=== PATIENT | female | born 1990 | race Asian ===

== ENCOUNTER 2019-07-02 15:33 | Inpatient (IN) ==
[2019-07-02 16:16] LABS: Basophils # (auto) 0.01 K/uL (0-0.2); Basophils % (auto) 0.2 %; Eosinophils # (auto) 0.04 K/uL (0-0.5); Eosinophils % (auto) 0.7 %; Hemoglobin 13.5 g/dL (12.0-16.0); Immature Granulocytes # (auto) 0.01 K/uL (0.00-0.02); Immature Granulocytes % (auto) 0.2 %; Lymphocytes # (auto) 1.73 K/uL (1.2-3.4); Mean Corpuscular Hemoglobin 31.5 pg (25-34); Mean Corpuscular Hgb Conc 33.8 g/dL (32-36); Mean Corpuscular Volume 93.5 fL (80-100); Mean Platelet Volume 9.1 fL (7.4-10.4); Monocytes # (auto) 0.38 K/uL (0.11-0.59); Monocytes % (auto) 6.4 %; Neutrophils # (auto) 3.79 K/uL (1.4-6.5); Neutrophils % (auto) 63.5 %; Platelet Count 257 K/uL (130-400); RDW Coefficient of Variation 13.3 % (11.5-14.5); RDW Standard Deviation 45.3 fL (36.4-46.3); Red Blood Count 4.28 M/uL (4.2-5.4); White Blood Count 5.96 K/uL (4.8-10.8)
[2019-07-02 16:22] LABS: Appearance Urine Clear (Clear); Bacteria Urine Automated Negative (Negative); Bilirubin Urine Negative (Negative); Blood Urine 1+ (Negative); Color Urine Yellow; Epithelial Cell Urine Auto >30 /lpf (0-5); Glucose Urine UA Negative (Negative); Ketones Urine 1+ (Negative); Leukocyte Esterase Urine Negative (Negative); Nitrite Urine Negative (Negative); Protein Urine Negative (Negative); RBC Urine Automated 0-4 /hpf (0-4); Specific Gravity Urine 1.011 (1.000-1.030); Urobilinogen Urine Negative (Negative)
[2019-07-02 16:36] LABS: Albumin Level 4.3 gm/dl (3.4-5.0); BUN Creatinine Ratio 14.4 (10-20); Calcium 9.1 mg/dl (8.5-10.1); Creatinine Clr Calc Pharmacy 83.9 ml/min; Est GFR (African American) 131.7; Est GFR (Non-African American) 113.7; Potassium 3.3 mmol/L (3.5-5.1)
[2019-07-02 16:39] LABS: Pregnancy Test, Serum Negative (Negative)
[2019-07-02 16:45] LABS: Acetaminophen < 2 ug/ml (10-30); Salicylate < 1.7 mg/dl (2.8-20)
[2019-07-02 16:45] LABS: Amphetamines+Metham, Urine Neg (Neg); Barbiturates, Urine Neg (Neg); Benzodiazepine, Urine Neg (Neg); Cocaine, Urine Neg (Neg); MDMA (Ecstacy), Urine Neg (Neg); Methadone, Urine Neg (Neg); Opiate, Urine Neg (Neg); Phencyclidine, Urine Neg (Neg)
[2019-07-02 16:47] LABS: Albumin Globulin Ratio 1.2 (0.9-2); Bilirubin,Total 0.9 mg/dl (0.2-1); Globulin 3.6 gm/dl (2.5-4.0); Thyroid Stimulating Hormone 2.49 uIu/ml (0.300-4.500); Total Protein 7.9 gm/dl (6.4-8.2)
--- NOTE | 2019-07-02 16:51 | Emergency Department Note ---
Entered by Adan Hoang acting as a scribe for History of Present Illness General Chief complaint: Mental Health Evaluation Stated complaint: ANXIETY,SUICIDAL THOUGHTS Time Seen by Provider: 07/02/19 15:47 Source: patient Limitations: no limitations History of Present Illness Onset (ago): day(s) (4) Location: head Pain Consistency: + constant Quality: + constant Associated symptoms: + other (suicidal ideations) Treatments prior to arrival: none The patient is a 28 year old female who presents to the Emergency Room for a mental health evaluation. The patient states she has been having increasing academic stress. The psychiatric protective services case worker states the patient had increased suicidal thoughts about 4 days ago. The psychiatric protective services case worker states the patient put a scarf around her neck and tried to hang herself 3 days ago. The psychiatric protective services case worker notes the patient called her family and told them where they could find her body. The patient states she went to [facility] today and they told her to go to the ED. She states she has never been hospitalized. She states she has never taken any psychiatric medicine. She states she is voluntary. She denies having financial troubles, trouble with her friends, and trouble with her family. She states she has thought of hurting herself before, but states 3 days ago was the furthest she ever went. She states she has been eating and drinking fine. She denies having any thyroid issues. Home Medications Home Medications Medication Instructions Recorded Confirmed Type multivitamin 1 tab PO DAILY 07/02/19 07/02/19 History Allergies Allergy/AdvReac Type Severity Reaction Status Date / Time No Known Allergies Allergy Unverified 07/02/19 15:50 Past Med/Surg History Medical History No pertinent past medical history Surgical History No pertinent past surgical history Social History Feels Safe at Home: No Smoking Status: Never smoker Review of Systems See HPI for pertinent positives & negatives. and A total of 10 systems reviewed and were otherwise negative Physical Exam Vital Signs Vital Signs - 24 hr 07/02/19 15:35 07/02/19 17:30 Temperature 36.3 C L Temperature Source Oral Pulse Rate 71 Pulse Rate [Finger] 57 L Respiratory Rate 20 20 Respiratory Effort / Characteristics Non-Labored Respiratory Depth Normal Respiratory Pattern Regular Blood Pressure 99/56 L Blood Pressure [Right Arm] 112/74 Blood Pressure Mean 70 Blood Pressure Mean [Right Arm] 86 Blood Pressure Position Sitting Pulse Oximetry 98 98 Oxygen Delivery Method Room Air Room Air Sepsis Recent Fever Within 48 Hours No Sepsis Action Taken by Nursing No Action Required GENERAL: Patient is in no acute distress. HEENT: No acute trauma, normocephalic atraumatic, mucous membranes moist, no nasal congestion, no scleral icterus. NECK: No stridor, no adenopathy, no meningismus, trachea is midline. LUNGS: Clear to auscultation bilaterally, no wheeze, no rhonchi, breath sounds equal. HEART: Without murmurs gallops or rubs, regular rate and rhythm. ABDOMEN: Soft, nontender, bowel sounds positive, no hernias, no peritonitis. EXTREMITIES: No cyanosis or edema, full range of motion of all the joints without pain or difficulty, no signs for acute trauma. NEUROLOGIC: Oriented x 3, no acute motor or sensory deficits, no focal weakness. SKIN: No rash, no jaundice, no diaphoresis. PSYCH: Admits to suicidal thoughts with an attempt to hang herself with a scarf over the weekend. Voluntary. Cooperative. Course Course 1551: The patient was evaluated in room A5, and a complete history and physical examination were performed. 1647: The patient is medically clear. 1800: The patient is signed out to Dr. Garcia - Emergency Medicine. He will further manage the care of the patient. Medical Decision Making Differential Diagnosis Differential Diagnosis includes but is not limited to alcohol or drug abuse, situational depression, suicidality, thyroid disorder, psychosis, , and electrolyte imbalance. Home Medications Current Medication List: was personally reviewed by me Laboratory Data Attestation: I reviewed the patient's lab results. Result diagrams: 07/02/19 16:08 07/02/19 16:08 Lab Results 07/02/19 07/02/19 07/02/19 Range/Units 16:04 16:04 16:08 WBC 5.96 (4.8-10.8) K/uL RBC 4.28 (4.2-5.4) M/uL Hgb 13.5 (12.0-16.0) g/dL Hct 40.0 (37-47) % MCV 93.5 (80-100) fL MCH 31.5 (25-34) pg MCHC 33.8 (32-36) g/dL RDW Std Deviation 45.3 (36.4-46.3) fL RDW Coeff of Rob 13.3 (11.5-14.5) % Plt Count 257 (130-400) K/uL MPV 9.1 (7.4-10.4) fL Immature Gran % (Auto) 0.2 % Neut % (Auto) 63.5 % Lymph % (Auto) 29.0 % [place] % (Auto) 6.4 % Eos % (Auto) 0.7 % Baso % (Auto) 0.2 % Immature Gran # (Auto) 0.01 (0.00-0.02) K/uL Neut # (Auto) 3.79 (1.4-6.5) K/uL Lymph # (Auto) 1.73 (1.2-3.4) K/uL [place] # (Auto) 0.38 (0.11-0.59) K/uL Eos # (Auto) 0.04 (0-0.5) K/uL Baso # (Auto) 0.01 (0-0.2) K/uL Sodium (136-145) mmol/L Potassium (3.5-5.1) mmol/L Chloride (98-107) mmol/L Carbon Dioxide (21-32) mmol/L Anion Gap (3-11) BUN (7-18) mg/dl Creatinine (0.6-1.2) mg/dl Est Cr Clr Drug Dosing ml/min Est GFR ( Amer) Est GFR (Non-Af Amer) BUN/Creatinine Ratio (10-20) Glucose (70-99) mg/dl Calcium (8.5-10.1) mg/dl Total Bilirubin (0.2-1) mg/dl AST (15-37) U/L ALT (12-78) U/L Alkaline Phosphatase (45-117) U/L Total Protein (6.4-8.2) gm/dl Albumin (3.4-5.0) gm/dl Globulin (2.5-4.0) gm/dl Albumin/Globulin Ratio (0.9-2) TSH (0.300-4.500) uIu/ml HCG, Qual (Negative) Urine Color Yellow Urine Appearance Clear (Clear) Urine pH 6.0 (4.5-7.5) Ur Specific [place] 1.011 (1.000-1.030) Urine Protein Negative (Negative) Urine Glucose (UA) Negative (Negative) Urine Ketones 1+ H (Negative) Urine Blood 1+ H (Negative) Urine Nitrite Negative (Negative) Urine Bilirubin Negative (Negative) Urine Urobilinogen Negative (Negative) Ur Leukocyte Esterase Negative (Negative) Urine WBC (Auto) 1-5 (0-5) /hpf Urine RBC (Auto) 0-4 (0-4) /hpf U Hyaline Cast (Auto) 1-5 (0-5) /lpf U Epithel Cells (Auto) >30 H (0-5) /lpf Urine Bacteria (Auto) Negative (Negative) Salicylates (2.8-20) mg/dl Urine Opiates Screen Neg (Neg) Ur Methadone, Qual Neg (Neg) Acetaminophen (10-30) ug/ml Urine Barbiturates Neg (Neg) Ur Phencyclidine (PCP) Neg (Neg) U Amphetamin/Meth Scrn Neg (Neg) MDMA (Ecstasy) Screen Neg (Neg) U Benzodiazepines Scrn Neg (Neg) Ur Cocaine Metabolite Neg (Neg) U Marijuana (THC) Screen Neg (Neg) Ethyl Alcohol mg/dL (0-3) mg/dl 07/02/19 07/02/19 07/02/19 Range/Units 16:08 16:08 16:08 WBC (4.8-10.8) K/uL RBC (4.2-5.4) M/uL Hgb (12.0-16.0) g/dL Hct (37-47) % MCV (80-100) fL MCH (25-34) pg MCHC (32-36) g/dL RDW Std Deviation (36.4-46.3) fL RDW Coeff of Rob (11.5-14.5) % Plt Count (130-400) K/uL MPV (7.4-10.4) fL Immature Gran % (Auto) % Neut % (Auto) % Lymph % (Auto) % [place] % (Auto) % Eos % (Auto) % Baso % (Auto) % Immature Gran # (Auto) (0.00-0.02) K/uL Neut # (Auto) (1.4-6.5) K/uL Lymph # (Auto) (1.2-3.4) K/uL [place] # (Auto) (0.11-0.59) K/uL Eos # (Auto) (0-0.5) K/uL Baso # (Auto) (0-0.2) K/uL Sodium 138 (136-145) mmol/L Potassium 3.3 L (3.5-5.1) mmol/L Chloride 104 (98-107) mmol/L Carbon Dioxide 29 (21-32) mmol/L Anion Gap 5.0 (3-11) BUN 11 (7-18) mg/dl Creatinine 0.73 (0.6-1.2) mg/dl Est Cr Clr Drug Dosing 83.9 ml/min Est GFR ( Amer) 131.7 Est GFR (Non-Af Amer) 113.7 BUN/Creatinine Ratio 14.4 (10-20) Glucose 90 (70-99) mg/dl Calcium 9.1 (8.5-10.1) mg/dl Total Bilirubin 0.9 (0.2-1) mg/dl AST 16 (15-37) U/L ALT 18 (12-78) U/L Alkaline Phosphatase 33 L (45-117) U/L Total Protein 7.9 (6.4-8.2) gm/dl Albumin 4.3 (3.4-5.0) gm/dl Globulin 3.6 (2.5-4.0) gm/dl Albumin/Globulin Ratio 1.2 (0.9-2) TSH 2.490 (0.300-4.500) uIu/ml HCG, Qual (Negative) Urine Color Urine Appearance (Clear) Urine pH (4.5-7.5) Ur Specific [place] (1.000-1.030) Urine Protein (Negative) Urine Glucose (UA) (Negative) Urine Ketones (Negative) Urine Blood (Negative) Urine Nitrite (Negative) Urine Bilirubin (Negative) Urine Urobilinogen (Negative) Ur Leukocyte Esterase (Negative) Urine WBC (Auto) (0-5) /hpf Urine RBC (Auto) (0-4) /hpf U Hyaline Cast (Auto) (0-5) /lpf U Epithel Cells (Auto) (0-5) /lpf Urine Bacteria (Auto) (Negative) Salicylates < 1.7 L (2.8-20) mg/dl Urine Opiates Screen (Neg) Ur Methadone, Qual (Neg) Acetaminophen < 2 L (10-30) ug/ml Urine Barbiturates (Neg) Ur Phencyclidine (PCP) (Neg) U Amphetamin/Meth Scrn (Neg) MDMA (Ecstasy) Screen (Neg) U Benzodiazepines Scrn (Neg) Ur Cocaine Metabolite (Neg) U Marijuana (THC) Screen (Neg) Ethyl Alcohol mg/dL < 3.0 (0-3) mg/dl 07/02/19 Range/Units 16:08 WBC (4.8-10.8) K/uL RBC (4.2-5.4) M/uL Hgb (12.0-16.0) g/dL Hct (37-47) % MCV (80-100) fL MCH (25-34) pg MCHC (32-36) g/dL RDW Std Deviation (36.4-46.3) fL RDW Coeff of Rob (11.5-14.5) % Plt Count (130-400) K/uL MPV (7.4-10.4) fL Immature Gran % (Auto) % Neut % (Auto) % Lymph % (Auto) % [place] % (Auto) % Eos % (Auto) % Baso % (Auto) % Immature Gran # (Auto) (0.00-0.02) K/uL Neut # (Auto) (1.4-6.5) K/uL Lymph # (Auto) (1.2-3.4) K/uL [place] # (Auto) (0.11-0.59) K/uL Eos # (Auto) (0-0.5) K/uL Baso # (Auto) (0-0.2) K/uL Sodium (136-145) mmol/L Potassium (3.5-5.1) mmol/L Chloride (98-107) mmol/L Carbon Dioxide (21-32) mmol/L Anion Gap (3-11) BUN (7-18) mg/dl Creatinine (0.6-1.2) mg/dl Est Cr Clr Drug Dosing ml/min Est GFR ( Amer) Est GFR (Non-Af Amer) BUN/Creatinine Ratio (10-20) Glucose (70-99) mg/dl Calcium (8.5-10.1) mg/dl Total Bilirubin (0.2-1) mg/dl AST (15-37) U/L ALT (12-78) U/L Alkaline Phosphatase (45-117) U/L Total Protein (6.4-8.2) gm/dl Albumin (3.4-5.0) gm/dl Globulin (2.5-4.0) gm/dl Albumin/Globulin Ratio (0.9-2) TSH (0.300-4.500) uIu/ml HCG, Qual Negative (Negative) Urine Color Urine Appearance (Clear) Urine pH (4.5-7.5) Ur Specific [place] (1.000-1.030) Urine Protein (Negative) Urine Glucose (UA) (Negative) Urine Ketones (Negative) Urine Blood (Negative) Urine Nitrite (Negative) Urine Bilirubin (Negative) Urine Urobilinogen (Negative) Ur Leukocyte Esterase (Negative) Urine WBC (Auto) (0-5) /hpf Urine RBC (Auto) (0-4) /hpf U Hyaline Cast (Auto) (0-5) /lpf U Epithel Cells (Auto) (0-5) /lpf Urine Bacteria (Auto) (Negative) Salicylates (2.8-20) mg/dl Urine Opiates Screen (Neg) Ur Methadone, Qual (Neg) Acetaminophen (10-30) ug/ml Urine Barbiturates (Neg) Ur Phencyclidine (PCP) (Neg) U Amphetamin/Meth Scrn (Neg) MDMA (Ecstasy) Screen (Neg) U Benzodiazepines Scrn (Neg) Ur Cocaine Metabolite (Neg) U Marijuana (THC) Screen (Neg) Ethyl Alcohol mg/dL (0-3) mg/dl Blood Pressure Blood Pressure Findings: Low blood pressure Blood Pressure Disposition: did not require urgent referral MDM Narrative There is no leukocytosis or concerning anemia. No significant electrolyte abnormality or kidney failure. No worrisome liver enzyme elevation. The patient appears to be in a euthyroid state. testing was negative. Urinalysis does not show infection. Urine tox was negative. Aspirin, Tylenol and alcohol levels were undetectable. The patient presents with some suicidal ideation and a partial attempt at suicide via hanging just a few days ago. She is currently voluntary. She does have a petitioning statement against her but is willing to stay in the hospital for help. The patient was felt medically clear. Psychiatry case management has been involved. A bed search is underway. Case has been signed out to Dr. Garcia at the change of shift. Please see his no pérez for the final disposition/plan. Impression & Plan Suicidal ideation Discharge Plan Visit Data Chief Complaint: Mental Health Evaluation Stated Complaint: ANXIETY,SUICIDAL THOUGHTS ED Provider: Drew Garcia Discharge Problem: Suicidal ideation Forms Stand Alone Forms: [facility], Suicide Prevention Resources Prescriptions Prescriptions: No Action multivitamin Tablet 1 tab PO DAILY RF: 0 The scribe's documentation has been prepared under my direction and personally reviewed by me in its entirety. I confirm that the note above accurately reflects all work, treatment, procedures, and medical decision making performed by me.
--- NOTE | 2019-07-02 19:40 | Emergency Department Note ---
Entered by Vee Meeks acting as a scribe for History of Present Illness General Chief complaint: Mental Health Evaluation Stated complaint: ANXIETY,SUICIDAL THOUGHTS Time Seen by Provider: 07/02/19 15:47 Source: patient Limitations: no limitations Home Medications Home Medications Medication Instructions Recorded Confirmed Type multivitamin 1 tab PO DAILY 07/02/19 07/02/19 History Allergies Allergy/AdvReac Type Severity Reaction Status Date / Time No Known Allergies Allergy Unverified 07/02/19 15:50 Past Med/Surg History Medical History No pertinent past medical history Surgical History No pertinent past surgical history Social History Feels Safe at Home: No Smoking Status: Never smoker Physical Exam Vital Signs Vital Signs - 24 hr 07/02/19 15:35 07/02/19 17:30 Temperature 97.3 F L Temperature Source Oral Pulse Rate 71 Pulse Rate [Finger] 57 L Respiratory Rate 20 20 Respiratory Effort / Characteristics Non-Labored Respiratory Depth Normal Respiratory Pattern Regular Blood Pressure 99/56 L Blood Pressure [Right Arm] 112/74 Blood Pressure Mean 70 Blood Pressure Mean [Right Arm] 86 Blood Pressure Position Sitting Pulse Oximetry 98 98 Oxygen Delivery Method Room Air Room Air Sepsis Recent Fever Within 48 Hours No Sepsis Action Taken by Nursing No Action Required Medical Decision Making Laboratory Data Result diagrams: 07/02/19 16:08 07/02/19 16:08 Lab Results 07/02/19 07/02/19 07/02/19 Range/Units 16:04 16:04 16:08 WBC 5.96 (4.8-10.8) K/uL RBC 4.28 (4.2-5.4) M/uL Hgb 13.5 (12.0-16.0) g/dL Hct 40.0 (37-47) % MCV 93.5 (80-100) fL MCH 31.5 (25-34) pg MCHC 33.8 (32-36) g/dL RDW Std Deviation 45.3 (36.4-46.3) fL RDW Coeff of Rob 13.3 (11.5-14.5) % Plt Count 257 (130-400) K/uL MPV 9.1 (7.4-10.4) fL Immature Gran % (Auto) 0.2 % Neut % (Auto) 63.5 % Lymph % (Auto) 29.0 % [place] % (Auto) 6.4 % Eos % (Auto) 0.7 % Baso % (Auto) 0.2 % Immature Gran # (Auto) 0.01 (0.00-0.02) K/uL Neut # (Auto) 3.79 (1.4-6.5) K/uL Lymph # (Auto) 1.73 (1.2-3.4) K/uL [place] # (Auto) 0.38 (0.11-0.59) K/uL Eos # (Auto) 0.04 (0-0.5) K/uL Baso # (Auto) 0.01 (0-0.2) K/uL Sodium (136-145) mmol/L Potassium (3.5-5.1) mmol/L Chloride (98-107) mmol/L Carbon Dioxide (21-32) mmol/L Anion Gap (3-11) BUN (7-18) mg/dl Creatinine (0.6-1.2) mg/dl Est Cr Clr Drug Dosing ml/min Est GFR ( Amer) Est GFR (Non-Af Amer) BUN/Creatinine Ratio (10-20) Glucose (70-99) mg/dl Calcium (8.5-10.1) mg/dl Total Bilirubin (0.2-1) mg/dl AST (15-37) U/L ALT (12-78) U/L Alkaline Phosphatase (45-117) U/L Total Protein (6.4-8.2) gm/dl Albumin (3.4-5.0) gm/dl Globulin (2.5-4.0) gm/dl Albumin/Globulin Ratio (0.9-2) TSH (0.300-4.500) uIu/ml HCG, Qual (Negative) Urine Color Yellow Urine Appearance Clear (Clear) Urine pH 6.0 (4.5-7.5) Ur Specific [place] 1.011 (1.000-1.030) Urine Protein Negative (Negative) Urine Glucose (UA) Negative (Negative) Urine Ketones 1+ H (Negative) Urine Blood 1+ H (Negative) Urine Nitrite Negative (Negative) Urine Bilirubin Negative (Negative) Urine Urobilinogen Negative (Negative) Ur Leukocyte Esterase Negative (Negative) Urine WBC (Auto) 1-5 (0-5) /hpf Urine RBC (Auto) 0-4 (0-4) /hpf U Hyaline Cast (Auto) 1-5 (0-5) /lpf U Epithel Cells (Auto) >30 H (0-5) /lpf Urine Bacteria (Auto) Negative (Negative) Salicylates (2.8-20) mg/dl Urine Opiates Screen Neg (Neg) Ur Methadone, Qual Neg (Neg) Acetaminophen (10-30) ug/ml Urine Barbiturates Neg (Neg) Ur Phencyclidine (PCP) Neg (Neg) U Amphetamin/Meth Scrn Neg (Neg) MDMA (Ecstasy) Screen Neg (Neg) U Benzodiazepines Scrn Neg (Neg) Ur Cocaine Metabolite Neg (Neg) U Marijuana (THC) Screen Neg (Neg) Ethyl Alcohol mg/dL (0-3) mg/dl 07/02/19 07/02/19 07/02/19 Range/Units 16:08 16:08 16:08 WBC (4.8-10.8) K/uL RBC (4.2-5.4) M/uL Hgb (12.0-16.0) g/dL Hct (37-47) % MCV (80-100) fL MCH (25-34) pg MCHC (32-36) g/dL RDW Std Deviation (36.4-46.3) fL RDW Coeff of Rob (11.5-14.5) % Plt Count (130-400) K/uL MPV (7.4-10.4) fL Immature Gran % (Auto) % Neut % (Auto) % Lymph % (Auto) % [place] % (Auto) % Eos % (Auto) % Baso % (Auto) % Immature Gran # (Auto) (0.00-0.02) K/uL Neut # (Auto) (1.4-6.5) K/uL Lymph # (Auto) (1.2-3.4) K/uL [place] # (Auto) (0.11-0.59) K/uL Eos # (Auto) (0-0.5) K/uL Baso # (Auto) (0-0.2) K/uL Sodium 138 (136-145) mmol/L Potassium 3.3 L (3.5-5.1) mmol/L Chloride 104 (98-107) mmol/L Carbon Dioxide 29 (21-32) mmol/L Anion Gap 5.0 (3-11) BUN 11 (7-18) mg/dl Creatinine 0.73 (0.6-1.2) mg/dl Est Cr Clr Drug Dosing 83.9 ml/min Est GFR ( Amer) 131.7 Est GFR (Non-Af Amer) 113.7 BUN/Creatinine Ratio 14.4 (10-20) Glucose 90 (70-99) mg/dl Calcium 9.1 (8.5-10.1) mg/dl Total Bilirubin 0.9 (0.2-1) mg/dl AST 16 (15-37) U/L ALT 18 (12-78) U/L Alkaline Phosphatase 33 L (45-117) U/L Total Protein 7.9 (6.4-8.2) gm/dl Albumin 4.3 (3.4-5.0) gm/dl Globulin 3.6 (2.5-4.0) gm/dl Albumin/Globulin Ratio 1.2 (0.9-2) TSH 2.490 (0.300-4.500) uIu/ml HCG, Qual (Negative) Urine Color Urine Appearance (Clear) Urine pH (4.5-7.5) Ur Specific [place] (1.000-1.030) Urine Protein (Negative) Urine Glucose (UA) (Negative) Urine Ketones (Negative) Urine Blood (Negative) Urine Nitrite (Negative) Urine Bilirubin (Negative) Urine Urobilinogen (Negative) Ur Leukocyte Esterase (Negative) Urine WBC (Auto) (0-5) /hpf Urine RBC (Auto) (0-4) /hpf U Hyaline Cast (Auto) (0-5) /lpf U Epithel Cells (Auto) (0-5) /lpf Urine Bacteria (Auto) (Negative) Salicylates < 1.7 L (2.8-20) mg/dl Urine Opiates Screen (Neg) Ur Methadone, Qual (Neg) Acetaminophen < 2 L (10-30) ug/ml Urine Barbiturates (Neg) Ur Phencyclidine (PCP) (Neg) U Amphetamin/Meth Scrn (Neg) MDMA (Ecstasy) Screen (Neg) U Benzodiazepines Scrn (Neg) Ur Cocaine Metabolite (Neg) U Marijuana (THC) Screen (Neg) Ethyl Alcohol mg/dL < 3.0 (0-3) mg/dl 07/02/19 Range/Units 16:08 WBC (4.8-10.8) K/uL RBC (4.2-5.4) M/uL Hgb (12.0-16.0) g/dL Hct (37-47) % MCV (80-100) fL MCH (25-34) pg MCHC (32-36) g/dL RDW Std Deviation (36.4-46.3) fL RDW Coeff of Rob (11.5-14.5) % Plt Count (130-400) K/uL MPV (7.4-10.4) fL Immature Gran % (Auto) % Neut % (Auto) % Lymph % (Auto) % [place] % (Auto) % Eos % (Auto) % Baso % (Auto) % Immature Gran # (Auto) (0.00-0.02) K/uL Neut # (Auto) (1.4-6.5) K/uL Lymph # (Auto) (1.2-3.4) K/uL [place] # (Auto) (0.11-0.59) K/uL Eos # (Auto) (0-0.5) K/uL Baso # (Auto) (0-0.2) K/uL Sodium (136-145) mmol/L Potassium (3.5-5.1) mmol/L Chloride (98-107) mmol/L Carbon Dioxide (21-32) mmol/L Anion Gap (3-11) BUN (7-18) mg/dl Creatinine (0.6-1.2) mg/dl Est Cr Clr Drug Dosing ml/min Est GFR ( Amer) Est GFR (Non-Af Amer) BUN/Creatinine Ratio (10-20) Glucose (70-99) mg/dl Calcium (8.5-10.1) mg/dl Total Bilirubin (0.2-1) mg/dl AST (15-37) U/L ALT (12-78) U/L Alkaline Phosphatase (45-117) U/L Total Protein (6.4-8.2) gm/dl Albumin (3.4-5.0) gm/dl Globulin (2.5-4.0) gm/dl Albumin/Globulin Ratio (0.9-2) TSH (0.300-4.500) uIu/ml HCG, Qual Negative (Negative) Urine Color Urine Appearance (Clear) Urine pH (4.5-7.5) Ur Specific [place] (1.000-1.030) Urine Protein (Negative) Urine Glucose (UA) (Negative) Urine Ketones (Negative) Urine Blood (Negative) Urine Nitrite (Negative) Urine Bilirubin (Negative) Urine Urobilinogen (Negative) Ur Leukocyte Esterase (Negative) Urine WBC (Auto) (0-5) /hpf Urine RBC (Auto) (0-4) /hpf U Hyaline Cast (Auto) (0-5) /lpf U Epithel Cells (Auto) (0-5) /lpf Urine Bacteria (Auto) (Negative) Salicylates (2.8-20) mg/dl Urine Opiates Screen (Neg) Ur Methadone, Qual (Neg) Acetaminophen (10-30) ug/ml Urine Barbiturates (Neg) Ur Phencyclidine (PCP) (Neg) U Amphetamin/Meth Scrn (Neg) MDMA (Ecstasy) Screen (Neg) U Benzodiazepines Scrn (Neg) Ur Cocaine Metabolite (Neg) U Marijuana (THC) Screen (Neg) Ethyl Alcohol mg/dL (0-3) mg/dl Discharge Plan Visit Data Chief Complaint: Mental Health Evaluation Stated Complaint: ANXIETY,SUICIDAL THOUGHTS ED Provider: Drew Garcia Prescriptions Prescriptions: No Action multivitamin Tablet 1 tab PO DAILY RF: 0
[2019-07-02] MEDS ORDERED: MAGNESIUM HYDROXIDE SUSP 30 ML UDC PO PRN (19:55)
[2019-07-02] MEDS ORDERED: ALUMINUM/MAGNESIUM SUSP 30 ML UDC PO PRN (19:55)
[2019-07-02] MEDS ORDERED: BISMUTH SUBSALICYLATE PER ML OMNICELL CHARGE PO PRN (19:55)
[2019-07-02] MEDS ORDERED: ACETAMINOPHEN 325 MG TAB PO PRN (19:55)
[2019-07-02] MEDS ORDERED: SODIUM CHLORIDE 0.65% NA SOLN 45 ML (OCEAN) PRN (19:55)
--- NOTE | 2019-07-03 01:38 | Emergency Department Note ---
Entered by Vee Meeks acting as a scribe for Drew Garcia MD ED Visit Note I assumed care from Dr. Spear pending a 202. I signed the 202 and the patient was admitted to [address] [place] [address] . The scribe's documentation has been prepared under my direction and personally reviewed by me in its entirety. I confirm that the note above accurately reflects all work, treatment, procedures, and medical decision making performed by me.
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
--- NOTE | 2019-07-04 09:12 | Psychiatric Progress Note ---
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 She reports school stress and feels unable to keep up with her work, and was considering withdrawing and returning to [place]. Her parents are aware of her struggles but do not feel she is depressed and tell her she is avoiding her responsibilities, and part of her believes this and struggles to reframe her difficulties as an illness. She has never been on medication, and although she has had therapy, at least briefly, in the past, she has no current outpatient treatment. She is declining a family meeting, and remains unwilling for medication. She did accept information about escitalopram on the day of admission, but is interest in trial of therapy first - encouraged her to consider medication options as a future option in her treatment plan. Inpatient treatment is medically necessary due to the severity of her symptoms and risk for suicide if discharged. (1) Depression: 07/03 -education provided regarding her diagnosis, the treatment options, including medications, therapy, lifestyle and behavioral interventions, as well as the psychological and spiritual aspects of mood disorders. She is interested in different approaches, having recently tried a drastic dietary change to impact mood, and has also benefited from therapy in the past. She was unwilling for medication today, but discussed the goal of using an antidepressant, specifically discussed SSRIs (escitalopram), including review of risks, benefits, and side effects, and the black box warning for increased suicidality for young adults. She was provided with an up-to-date patient handout on the medication. -Continue inpatient treatment. Encourage group attendance and participation. Work on healthy coping skills and discharge safety plan. -Recommend outpatient treatment with psychiatrist and therapist. -Recommend family meeting, either with parents in [place] or friends locally, which she is declining. -Coordinate with the [facility]. 07/04 - Continue to provide education on diagnoses and aftercare recommendations - pt only willing for therapy at this time - Pt requesting discharge, feeling her stay has not been helpful and that hospitalization has made her suicidality worse - she was reminded of her right to sign a 72-hour notice and additional education was provided on this. She declined at this time, but continues to state she will not stay in the hospital past "three days, total" - Reports suicidality is worse today than on the day she experimented with hanging - Pt was encouraged to openly discuss her chronic suicidality with her outpatient therapist, and work toward safety planning steps early as a way to build rapport and trust. Pt admits she feels as though she cannot be truthful about her suicidality in the future after being referred to the hospital when she had been honest. She was encouraged to share this frustration with her outpatient therapist, to ensure she could be honest in their sessions, but come to an understanding of when crisis services would be recommended - Continue to encourage a family meeting, safety plan completion, and solidified outpatient supports as part of discharge planning - she remains resistant to these Risk Factors Assessment Male: No : No Do You Have Access To A Gun?: No Health Problems: No Mental Health Diagnoses: Yes Substance Use Disorders: No Previous Attempt: Yes Family History of Suicide: No Previous Psychiatric Hospitalization: No Hopelessness: Yes Smoker: No Protective Factors Assessment : No Responsible for Young Children: No Employed: No Stable Relationships: No Supportive Family: Yes (Although conflicted relationship) Good Rapport with Provider: No Interval History Identifying Information ZURDO ANGELA is a 28-year-old female [employer] 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 She was referred from [facility] after a crisis assessment there, and there is a 302 petition. Chief Complaint "I feel pretty normal. Pretty consistent, stable." Review of Systems Notes Constitutional: denied Cardiovascular: denied Respiratory: denied Gastrointestinal: denied Neurological: denied Psychiatric: denies symptoms other than stated above Total of at least 10 systems reviewed, pertinent positives as above and in HPI. Sleep Information Total Hours of Sleep: 6.25 Meal Information Percent Meal Consumed - Breakfast: 100 Percent Meal Consumed - Lunch: 100 Percent Meal Consumed - Dinner: 90 Subjective Subjective Patient was seen & assessed and interval progress reviewed with treatment team. Staff report the patient has been attending group programming. She continues to report SI, but admits this has been ongoing for several years. Pt was seen today to assess progress since admission. Pt provides verbal consent to allow Megan Correia PA-C to observe today's encounter. Pt uses the words "normal", "consistent", and "stable" when describing her mood today. She is able to openly discuss stressors she believes contributed to her exacerbation of depressive symptoms. Pt admits school has been a primary factor, feeling that she experiences increased difficulty as she has difficulty being assertive enough to request help from her professors, and that being an international student causes her to require additional time in her reading assignments. Pt states that on top of these concerns, her depression has contributed to low motivation and difficulty concentrating - further worsening her ability to be productive with schoolwork. Some time was spent exploring the possibility of more obsessive thoughts and presence of compulsions. Pt admits that she becomes obsessive about meeting the expectations set forth by professors. She states she had previously called her classmates obsessively, "I'd make several calls a night to make sure I wasn't missing any assignments. I got better about doing that as I learned more about OCD. I didn't want to be like that." Now in her graduate program, patient admits that she feels as though "I have to force myself to read through every since sentence [of reading assignments], even though most of my classmates only read the abstract and discussion. I can't do that." She also states that he has some tendencies as it relates to smell as well. She states that she will open all the windows and doors when she is cooking, as she attempts to ensure she does not smell the food/smoke. Pt states that if this anxiety becomes overwhelming, she will often feel compelled to "take another shower." Pt is also able to provide some reflection regarding feeling as thought she is unable to present herself without "performing", admitting to attempts to conceal her true thoughts and feels in order to better fit into conversations or situations. She states this is something she has noticed since a young age. She reports feeling as though she needs to be "fake", which leads to her feeling as though "I am suffocating most of the time." Pt admits that her SI began around age "10 or 12", but started as a "back-up plan" if her life ever became unbearable. Pt states it has been less of a back-up plan since age 18, when suicidal thoughts became more chronic but were still passive in nature. She admits that she has "experimented" several times with hanging herself, but feels that in these moments is when she realizes that she does not truly want to , stating she has too much self-control to allow them to be successful. When asked what the intent of these "experiments" are, she states "sometimes I hope that I lose control and just . Pt does spend some time verbalizing frustration with her referral and admission process, feeling hospitalization is not productive for her. We discussed each concern at length, and patient was encouraged to focus on aspects of discharge planning within her control. She remains resistant to involving any outpatient supports in a family meeting and states he already completed a safety plan last year. Pt was reminded of the importance of professional providers as well, remaining agreeable with therapy referral, but not wanting to remain in the hospital while an appointment is scheduled. In sharing these frustrations, the patient does verbalized "my suicidal thoughts are worse now than they were last Sunday" (day of hanging attempt). Pt was offered 72-hour notice, but declined to sign at this time. She denied other needs or concerns presently, aside from wanting to be discharged home. Physical Exam Psychiatric Orientation: alert, oriented x 3 and + guarded (initially cooperative, then became defensive and irritable) Apperance: appropriately dressed (wearing sweater and long skirt), appropriately groomed and appeared stated age Eye Contact: good eye contact Motor Behavior: steady gait and station and no abnormal motor movements Speech: normal rate/rhythm/volume of speech Affect: + irritable affect Mood: + irritable mood Thought Process: goal directed thought process, clear/coherent thought process and thought association intact Thought Content: + cognitive distortions; no hopelessness ("I have hope for the future, that should be important") Suicidal Thoughts: + reports suicidal thoughts Pt actually admits SI is worse now than it was when she attempted hanging Homicidal Thoughts: denies homicidal thoughts Hallucinations: no auditory hallucinations and no visual hallucinations Cognition: attention grossly intact and language grossly intact Insight: + limited insight Judgement: + limited judgement Vital Signs (Past 24 Hours) Last Vital Signs Temp 36.3 C L 07/04/19 06:00 Pulse 59 L 07/04/19 06:00 Resp 16 07/04/19 06:00 BP 91/61 L 07/04/19 06:00 Pulse Ox 98 07/02/19 19:57 Results & Data ([facility]) Current Inpatient Medications Current Inpatient Medications: Current Inpatient Medications Acetaminophen (Tylenol) 650 mg PO Q4H PRN PRN Reason: Headache or Minor Fever Stop: 08/01/19 19:54 Al Hydrox/Mg Hydrox/Simethicone (Maalox) 30 ml PO Q4H PRN PRN Reason: GI Upset Stop: 08/01/19 19:54 Bismuth Subsalicylate (Kaopectate) 15 ml PO PRN PRN PRN Reason: Loose Stool Stop: 08/01/19 19:54 Hydroxyzine HCl (Vistaril) 50 mg PO HSZ PRN PRN Reason: Insomnia Stop: 08/01/19 19:54 Hydroxyzine HCl (Vistaril) 25 mg PO Q4H PRN PRN Reason: Anxiety Stop: 08/01/19 19:54 Magnesium Hydroxide (Milk Of Magnesia) 30 ml PO DAILY PRN PRN Reason: Constipation Stop: 08/01/19 19:54 Sodium Chloride ([place] Nasal) 1 - 2 sprays NA PRN PRN PRN Reason: Nasal Dryness/Congestion Stop: 08/01/19 19:54 Mental Health & Subst Abuse Tx Therapist Name of Therapist: [facility] [employer] Landscape Designer Name of Environment Friendly Landscape Designer: Denies/None Post Discharge Appointments Primary Care Physician Name Of Family Doctor: [facility]
--- NOTE | 2019-07-05 14:48 | Psychiatric Progress Note ---
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 Inpatient treatment is medically necessary due to the severity of her symptoms and risk for suicide if discharged. (1) Depression: 07/03 -education provided regarding her diagnosis, the treatment options, including medications, therapy, lifestyle and behavioral interventions, as well as the psychological and spiritual aspects of mood disorders. She is interested in different approaches, having recently tried a drastic dietary change to impact mood, and has also benefited from therapy in the past. She was unwilling for medication today, but discussed the goal of using an antidepressant, specifically discussed SSRIs (escitalopram), including review of risks, benefits, and side effects, and the black box warning for increased suicidality for young adults. She was provided with an up-to-date patient handout on the medication. -Continue inpatient treatment. Encourage group attendance and participation. Work on healthy coping skills and discharge safety plan. -Recommend outpatient treatment with psychiatrist and therapist. -Recommend family meeting, either with parents in [place] or friends locally, which she is declining. -Coordinate with the [facility]. 07/04 - Continue to provide education on diagnoses and aftercare recommendations - pt only willing for therapy at this time - Pt requesting discharge, feeling her stay has not been helpful and that hospitalization has made her suicidality worse - she was reminded of her right to sign a 72-hour notice and additional education was provided on this. She declined at this time, but continues to state she will not stay in the hospital past "three days, total" - Reports suicidality is worse today than on the day she experimented with hanging - Pt was encouraged to openly discuss her chronic suicidality with her outpatient therapist, and work toward safety planning steps early as a way to build rapport and trust. Pt admits she feels as though she cannot be truthful about her suicidality in the future after being referred to the hospital when she had been honest. She was encouraged to share this frustration with her outpatient therapist, to ensure she could be honest in their sessions, but come to an understanding of when crisis services would be recommended - Continue to encourage a family meeting, safety plan completion, and solidified outpatient supports as part of discharge planning - she remains resistant to these --encouraged family meeting and clear decision about staying at [employer] with support of SW and likely advisor after weekend. 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 She was referred from [facility] after a crisis assessment there, and there is a 302 petition. Chief Complaint "I always have thoughts, more like I'd like something to happen to me to , I was just experimenting". Review of Systems Sleep Information Total Hours of Sleep: 5.25 Sleep Comments: Venita reads until late every night. Meal Information Percent Meal Consumed - Breakfast: 100 Percent Meal Consumed - Lunch: 40 Percent Meal Consumed - Dinner: 100 Subjective Subjective Patient was seen & assessed and interval progress reviewed with nursing and social work. Has been cooperative with group therapies, declining trial of SSRI (specifically Lexapro). Reports SI then also wanting to leave the hospital. Hasn't spoken with family much yet they are main stressor. States she is starting to feel that she can make adult decisions and as long as she feels in control of herself/actions she doesn't see a need for medication. Reviewed aspects of safety planning that need addressed while she is here and also that if leaving her graduate program (states not a good fit) in the context of all this may impact her aftercare plan. Physical Exam Psychiatric Orientation: alert, oriented x 3 and cooperative Apperance: appropriately groomed and appeared stated age Eye Contact: good eye contact Motor Behavior: steady gait and station and no abnormal motor movements Speech: normal rate/rhythm/volume of speech Affect: mood congruent with affect Mood: + depressed mood Thought Process: goal directed thought process, clear/coherent thought process and thought association intact Thought Content: + cognitive distortions Suicidal Thoughts: + reports suicidal thoughts Homicidal Thoughts: denies homicidal thoughts Hallucinations: no auditory hallucinations and no visual hallucinations Cognition: recent memory grossly intact, remote memory grossly intact, attention grossly intact and language grossly intact Estimated Intelligence: consistent with education level Insight: + limited insight and + impaired insight Judgement: + limited judgement and + impaired judgement Vital Signs (Past 24 Hours) Last Vital Signs Temp 36.7 C 07/05/19 06:47 Pulse 80 07/05/19 06:48 Resp 16 07/05/19 06:47 BP 89/56 L 07/05/19 06:48 Pulse Ox 98 07/02/19 19:57 Results & Data ([facility]) Current Inpatient Medications Current Inpatient Medications: Current Inpatient Medications Acetaminophen (Tylenol) 650 mg PO Q4H PRN PRN Reason: Headache or Minor Fever Stop: 08/01/19 19:54 Al Hydrox/Mg Hydrox/Simethicone (Maalox) 30 ml PO Q4H PRN PRN Reason: GI Upset Stop: 08/01/19 19:54 Bismuth Subsalicylate (Kaopectate) 15 ml PO PRN PRN PRN Reason: Loose Stool Stop: 08/01/19 19:54 Hydroxyzine HCl (Vistaril) 50 mg PO HSZ PRN PRN Reason: Insomnia Stop: 08/01/19 19:54 Hydroxyzine HCl (Vistaril) 25 mg PO Q4H PRN PRN Reason: Anxiety Stop: 08/01/19 19:54 Magnesium Hydroxide (Milk Of Magnesia) 30 ml PO DAILY PRN PRN Reason: Constipation Stop: 08/01/19 19:54 Sodium Chloride ([place] Nasal) 1 - 2 sprays NA PRN PRN PRN Reason: Nasal Dryness/Congestion Stop: 08/01/19 19:54 Mental Health & Subst Abuse Tx Therapist Name of Therapist: [facility] Name of Wood Miller: Denies/None Post Discharge Appointments Primary Care Physician Name Of Family Doctor: [facility]
--- NOTE | 2019-07-06 14:38 | Psychiatric Progress Note ---
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 Inpatient treatment is medically necessary due to the severity of her symptoms and risk for suicide if discharged. (1) Depression: 07/03 -education provided regarding her diagnosis, the treatment options, including medications, therapy, lifestyle and behavioral interventions, as well as the psychological and spiritual aspects of mood disorders. She is interested in different approaches, having recently tried a drastic dietary change to impact mood, and has also benefited from therapy in the past. She was unwilling for medication today, but discussed the goal of using an antidepressant, specifically discussed SSRIs (escitalopram), including review of risks, benefits, and side effects, and the black box warning for increased suicidality for young adults. She was provided with an up-to-date patient handout on the medication. -Continue inpatient treatment. Encourage group attendance and participation. Work on healthy coping skills and discharge safety plan. -Recommend outpatient treatment with psychiatrist and therapist. -Recommend family meeting, either with parents in [place] or friends locally, which she is declining. -Coordinate with the [place]. 07/04 - Continue to provide education on diagnoses and aftercare recommendations - pt only willing for therapy at this time - Pt requesting discharge, feeling her stay has not been helpful and that hospitalization has made her suicidality worse - she was reminded of her right to sign a 72-hour notice and additional education was provided on this. She declined at this time, but continues to state she will not stay in the hospital past "three days, total" - Reports suicidality is worse today than on the day she experimented with hanging - Pt was encouraged to openly discuss her chronic suicidality with her outpatient therapist, and work toward safety planning steps early as a way to build rapport and trust. Pt admits she feels as though she cannot be truthful about her suicidality in the future after being referred to the hospital when she had been honest. She was encouraged to share this frustration with her outpatient therapist, to ensure she could be honest in their sessions, but come to an understanding of when crisis services would be recommended - Continue to encourage a family meeting, safety plan completion, and solidified outpatient supports as part of discharge planning - she remains resistant to these --encouraged family meeting and clear decision about staying at [facility] with support of SW and likely advisor after weekend. 07/05--SI persists but expression is uniquely cultural, no obvious borderline pathology in unit interactions, staff to involve more local friend in safety planning, more future focussed today, still denies vegetative symptoms of depression and declines med trial. Risk Factors Assessment Male: No : No Do You Have Access To A Gun?: No Health Problems: No Mental Health Diagnoses: Yes Substance Use Disorders: No Previous Attempt: Yes Family History of Suicide: No Previous Psychiatric Hospitalization: No Hopelessness: Yes Smoker: No Protective Factors Assessment : No Responsible for Young Children: No Employed: No Stable Relationships: No Supportive Family: Yes (Although conflicted relationship) Good Rapport with Provider: No Interval History Identifying Information VENITA ANGELA is a 28-year-old female [employer] grad student from [place] who was admitted on 07/02/19 19:04 on a 201 voluntary commitment for depression and a suicidal gesture with a scarf. Chief Complaint "I'm glad that I can have my own thoughts and be separate from my parents". Review of Systems Sleep Information Total Hours of Sleep: 6 Sleep Comments: Venita reads until late every night. Meal Information Percent Meal Consumed - Breakfast: 100 Percent Meal Consumed - Lunch: 40 Percent Meal Consumed - Dinner: 100 Subjective Subjective Patient was seen & assessed and interval progress reviewed with nursing and social work. Patient reports very different perception of meeting with parents that sw, though both report parents laughed about her suicide attempt and our cultural view of the severity. The family has normalized SI as "doesn't everyone not want to live?" and since 10 yo she has had thoughts but didn't feel "brave enough" to act. Unclear how much of her recent actions are more of a test of her bravery vs desire to want to truly . She has decided to cut her graduate workload and take some time to get more intensive therapy and yoga while determines best intermediate project manager plan. Denies that she would harm herself to prove parents wrong. Denies anger at them for comparing her to farm animals (useless if not serving them) but able to recognize this contributes to low self esteem. She continues to express shame to be alive as charted by staff but clarifies that this feeling doesn't want her to self harm. She is focussed on cooking and baking as a coping skill. Physical Exam Psychiatric Orientation: alert Apperance: appropriately dressed and appropriately groomed Eye Contact: good eye contact Motor Behavior: steady gait and station Speech: normal rate/rhythm/volume of speech Affect: euthymic affect Mood: no depressed mood Thought Process: linear/logical thought process Thought Content: no delusions ongoing wish, no intent on unit Homicidal Thoughts: denies homicidal thoughts Hallucinations: no auditory hallucinations and no visual hallucinations Cognition: attention grossly intact Estimated Intelligence: consistent with education level Insight: + limited insight Judgement: + limited judgement Vital Signs (Past 24 Hours) Last Vital Signs Temp 36.5 C 07/06/19 06:57 Pulse 87 07/06/19 06:58 Resp 16 07/06/19 06:57 BP 85/53 L 07/06/19 06:58 Pulse Ox 98 07/02/19 19:57 Results & Data ([facility]) Current Inpatient Medications Current Inpatient Medications: Current Inpatient Medications Acetaminophen (Tylenol) 650 mg PO Q4H PRN PRN Reason: Headache or Minor Fever Stop: 08/01/19 19:54 Al Hydrox/Mg Hydrox/Simethicone (Maalox) 30 ml PO Q4H PRN PRN Reason: GI Upset Stop: 08/01/19 19:54 Bismuth Subsalicylate (Kaopectate) 15 ml PO PRN PRN PRN Reason: Loose Stool Stop: 08/01/19 19:54 Hydroxyzine HCl (Vistaril) 50 mg PO HSZ PRN PRN Reason: Insomnia Stop: 08/01/19 19:54 Hydroxyzine HCl (Vistaril) 25 mg PO Q4H PRN PRN Reason: Anxiety Stop: 08/01/19 19:54 Magnesium Hydroxide (Milk Of Magnesia) 30 ml PO DAILY PRN PRN Reason: Constipation Stop: 08/01/19 19:54 Sodium Chloride ([place] Nasal) 1 - 2 sprays NA PRN PRN PRN Reason: Nasal Dryness/Congestion Stop: 08/01/19 19:54 Mental Health & Subst Abuse Tx Therapist Name of Therapist: CHERELLE Environmental Emergencies Assistant Name of Environmental Emergencies Assistant: [facility] Phone Number for Environmental Emergencies Assistant: [phone] Case Management Appointment Comment: [address] [place] [address] Post Discharge Appointments Primary Care Physician Name Of Family Doctor: [facility] Primary Care Provider Appointment Comment: [facility], [place], [place] [address] Contact Information Discharge Discharge Address: [address], [facility] [address], [place], [place]
--- NOTE | 2019-07-07 12:19 | Psychiatric Progress Note ---
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 Inpatient treatment is medically necessary due to the severity of her symptoms and risk of repeat as still working on cognitive orientation for safety planning, additional monitoring needed to ensure that all risks that can be mitigated inpatient have been addressed. (1) Depression: 07/03 -education provided regarding her diagnosis, the treatment options, including medications, therapy, lifestyle and behavioral interventions, as well as the psychological and spiritual aspects of mood disorders. She is interested in different approaches, having recently tried a drastic dietary change to impact mood, and has also benefited from therapy in the past. She was unwilling for medication today, but discussed the goal of using an antidepressant, specifically discussed SSRIs (escitalopram), including review of risks, be nefits, and side effects, and the black box warning for increased suicidality for young adults. She was provided with an up-to-date patient handout on the medication. -Continue inpatient treatment. Encourage group attendance and participation. Work on healthy coping skills and discharge safety plan. -Recommend outpatient treatment with psychiatrist and therapist. -Recommend family meeting, either with parents in [place] or friends locally, which she is declining. -Coordinate with the [facility]. 07/04 - Continue to provide education on diagnoses and aftercare recommendations - pt only willing for therapy at this time - Pt requesting discharge, feeling her stay has not been helpful and that hospitalization has made her suicidality worse - she was reminded of her right to sign a 72-hour notice and additional education was provided on this. She declined at this time, but continues to state she will not stay in the hospital past "three days, total" - Reports suicidality is worse today than on the day she experimented with hanging - Pt was encouraged to openly discuss her chronic suicidality with her outpatient therapist, and work toward safety planning steps early as a way to build rapport and trust. Pt admits she feels as though she cannot be truthful about her suicidality in the future after being referred to the hospital when she had been honest. She was encouraged to share this frustration with her outpatient therapist, to ensure she could be honest in their sessions, but come to an understanding of when crisis services would be recommended - Continue to encourage a family meeting, safety plan completion, and solidified outpatient supports as part of discharge planning - she remains resistant to these --encouraged family meeting and clear decision [facility] staying [facility] with support of SW and likely advisor after weekend. 07/05--SI persists but expression is uniquely cultural, no obvious borderline pathology in unit interactions, staff to involve more local friend in safety planning, more future focussed today, still denies vegetative symptoms of depression and declines med trial. 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 Chief Complaint "I have very negative self-concept". Review of Systems Sleep Information Total Hours of Sleep: 5.5 Sleep Comments: Venita reads until late every night. Meal Information Percent Meal Consumed - Breakfast: 100 Percent Meal Consumed - Lunch: 40 Percent Meal Consumed - Dinner: 100 Subjective Subjective Patient was seen & assessed and interval progress reviewed with treatment team. Feels that she benefits from group and mood was improved somewhat last night but still feels that "every time I think I'm stupid I want to kill myself" which is likely to happen when back in an academic setting as compares self to others. Working with CBT to reality test thoughts, only able to improve to "I'm not stupid stupid but stupider than other people". Discussed how ability to deal with such thoughts are an important part of her safety plan. Physical Exam Psychiatric Orientation: alert Apperance: appropriately dressed and appropriately groomed Eye Contact: good eye contact Motor Behavior: steady gait and station Speech: normal rate/rhythm/volume of speech Affect: euthymic affect; + mood not congruent with affect "fine" Thought Process: goal directed thought process Thought Content: reality based without delusions Suicidal Thoughts: denies suicidal thoughts (in this moment) Homicidal Thoughts: denies homicidal thoughts Hallucinations: no auditory hallucinations and no visual hallucinations Cognition: recent memory grossly intact and language grossly intact Estimated Intelligence: consistent with education level Insight: + limited insight Judgement: + limited judgement Vital Signs (Past 24 Hours) Last Vital Signs Temp 36.7 C 07/07/19 06:00 Pulse 73 07/07/19 06:42 Resp 16 07/07/19 06:00 BP 85/60 L 07/07/19 06:42 Pulse Ox 98 07/02/19 19:57 Results & Data ([facility]) Current Inpatient Medications Current Inpatient Medications: Current Inpatient Medications Acetaminophen (Tylenol) 650 mg PO Q4H PRN PRN Reason: Headache or Minor Fever Stop: 08/01/19 19:54 Al Hydrox/Mg Hydrox/Simethicone (Maalox) 30 ml PO Q4H PRN PRN Reason: GI Upset Stop: 08/01/19 19:54 Bismuth Subsalicylate (Kaopectate) 15 ml PO PRN PRN PRN Reason: Loose Stool Stop: 08/01/19 19:54 Hydroxyzine HCl (Vistaril) 50 mg PO HSZ PRN PRN Reason: Insomnia Stop: 08/01/19 19:54 Hydroxyzine HCl (Vistaril) 25 mg PO Q4H PRN PRN Reason: Anxiety Stop: 08/01/19 19:54 Magnesium Hydroxide (Milk Of Magnesia) 30 ml PO DAILY PRN PRN Reason: Constipation Stop: 08/01/19 19:54 Sodium Chloride ([place]ood Nasal) 1 - 2 sprays NA PRN PRN PRN Reason: Nasal Dryness/Congestion Stop: 08/01/19 19:54 Mental Health & Subst Abuse Tx Therapist Name of Therapist: [facility] Senior Architect Name of Senior Architect: [facility] - [facility] Phone Number for Senior Architect: [phone] Date of Appointment with Senior Architect: 07/10/19 Time of Appointment with Senior Architect: 11:00 a.m. Case Management Appointment Comment: [address] [place] [address] Post Discharge Appointments Primary Care Physician Name Of Family Doctor: [facility] Primary Care Provider Appointment Comment: [place] [address] Contact Information Discharge Discharge Address: [address] [place] [address], [address] [place]
--- NOTE | 2019-07-08 11:44 | Discharge Summary ---
Date of Service July 08, 2019 History of Present Illness The patient presented to the ER yesterday, 07/02/2019, on referral from [facility] after she was seen there and reported a suicide attempt 3 days prior, by attaching a scarf to a curtain andra and then wrapping it around her neck to hang herself. She leaned to apply pressure, but then stopped herself. She reported multiple similar suicide attempts in the past, throughout middle and high school, and states it helps her to feel calm. She sent her parents a message telling them that if they did not hear from her in 24 hours, they should contact a friend of hers, who would know where to find her body. She was worried that her body would smell, and did not want that to affect other people. She stated she hoped she would be able to finish hanging herself, as it would be "a good thing." She said that she feels life is worth living, but not for her, because "I'm not good enough for it." She reported worsening suicidal thoughts for the past 4 days, increased academic, financial, and relationship (friends and family) stress. She denied any history of psychiatric treatment, and was willing for inpatient treatment. 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 She is experiencing mood, anxiety, and chronic suicidal ideation. Primary stressor is academics, as she is considering withdrawing from her program or reducing her course load. She reported ongoing thoughts of hanging herself. On 06/29/2019, she tied a scarf around her neck and a curtain andra and leaned to put pressure on her neck. Prior to this, she sent her yas roommate's contact information to her parents in [place] so they would have someone who could locate her body if she killed herself. She reported 10 other acts of furtherance and preparations for hanging herself, similar to this, in her lifetime. During act on 06/29/2019, she stopped because of thinking of a call with her parents that occurred earlier. She acknowledged thinking of the impact on them but also said killing her herself would relieve the trouble she causes for her parents. Additionally, a typical deterrent is fear of , but she reported no fear related to the act on 06/29/2019." Admission labs were notable for potassium of 3.3, UA with 1+ ketones and blood and > 30 epithelial cells. UDS and test negative, TSH normal. 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 She reports impaired focus, rumination on "judgments about myself," poor motivation, negative thoughts, and appetite is increased. Thinks she has gained a couple of lbs. She denies problems with sleep. She worries excessively and about "everything," often about what other people think about her, and assumes the worse. She attempted hanging on 06/29 as she was trying to complete a school project and felt unable to understand it/focus on it, thought "something is really very wrong with me, and I don't want to bother people anymore, and I don't think this can be fixed. I just want to go to spiritual center and become a nun or something." She reports SI and says she "really hopes I can , I hope I catch the coronavirus, but it's hard to kill myself, really do not have the courage, that's kind of frustrating, I'm hoping someone else can do that for me." She says "even when I'm happy, I wish that I was . I do feel that life is worthwhile, but just not for me." She has never wanted to take medication, "I don't feel there is something chemically wrong in my head, it's just a matter of perspective perhaps, it can be just cured by the right types of relationships than medicine." She says she "read somewhere that this type of feeling stems from the relationship with my parents a long time ago," and wants to "change my feelings about myself and the outside world." She refers to her relationships being "not right," "inappropriate," "unconventional," stating she "needs to be romantically involved with someone to be in a friendship." Her supports include her parents, male friend in [place], "sort of a boyfriend here who is from [place], and someone I met online who is also struggling with depression." She sent her parents a message yesterday and says they know she is here and is safe. She denies any history of self injurious behavior/cutting, manic and psychotic symptoms. She initially says she knows she is depressed, then says she doesn't really think she's depressed as she is eating and sleeping, and her parents tell her she's "just avoiding obligations." She tried eating a keto diet for about 3 weeks in May. as a way to address mood, and says it helped a lot, but she stopped because she feels it's unethical to eat just animals, and she didn't feel very good physically "because of all the fat." She has noticed that if she eats sugar, her mood "is out of control, lots of negative thoughts," but tends to eat sugary foods when stressed out. 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 Has also considered becoming a emergency veterinary assistant). Reports multiple traumatic experiences, including mother's anger outbursts and 3 years ago. Parents were supportive throughout that experience, but afterwards "used it against me." Denies PTSD symptoms. Physical Exam Psychiatric Orientation: alert, oriented x 3 and cooperative (and pleasant) Apperance: appropriately dressed, appropriately groomed and appeared stated age Eye Contact: good eye contact Motor Behavior: steady gait and station and no abnormal motor movements Speech: normal rate/rhythm/volume of speech Affect: euthymic affect and mood congruent with affect Mood: + depressed mood (ongoing, but reportedly much improved) Thought Process: goal directed thought process, clear/coherent thought process and thought association intact Thought Content: reality based without delusions; no hopelessness and no worthlessness Suicidal Thoughts: denies suicidal thoughts, denies suicidal plan and denies suicidal intent Homicidal Thoughts: denies homicidal thoughts Hallucinations: no auditory hallucinations and no visual hallucinations Cognition: attention grossly intact and language grossly intact Insight: + fair insight Judgement: + fair judgement Vital Signs (Past 24 Hours) Last Vital Signs Temp 36.6 C 07/08/19 06:45 Pulse 67 07/08/19 06:46 Resp 16 07/08/19 06:45 BP 98/62 L 07/08/19 06:46 Pulse Ox 98 07/02/19 19:57 Principal Diagnosis - Depression, NOS Psychiatric Data 28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 She was admitted voluntarily for psychiatric treatment on 07/02/2019. Pt reported chronic depressive symptoms and suicidality with multiple hanging attempts that she felt unable to go through with. Pt presented to the ED after presenting to [facility] for an urgent appointment after a suicide attempt by hanging, which actually occurred several days prior. In addition, she reported school stress and felt as though she had been unable to keep up with her work. Pt stated she was considering withdrawing and retur corbin to [place]. Pt reported that her parents are aware of her struggles but do not feel she is depressed and tell her she is avoiding her responsibilities, and part of her believes this and struggled to reframe her difficulties as an illness. At time of admission, initiation of antidepressant medication was discussed. Pt did accept information about escitalopram, but continued to report desire to trial outpatient psychotherapy prior to a trial of medications. At time of admission, patient had not outpatient psychiatric providers or supports. Pt did participate in group and recreational programming. She completed a safety plan prior to discharge, which was personally reviewed by this provider. Pt was unable to present a local support she was interested in involving in a support meeting. Instead, she agreed with a phone call to her parents back in [place]. Parents continued to verbalize limited emotional support, but the phone call did allow the patient an opportunity to share sirena tional details about her struggles with her parents. Referrals were sent to establish outpatient professional support. Pt was scheduled for an appointment at [facility] on 07/10/2019 to allow for timely follow-up with outpatient therapist after hospital discharge. Based on review of patient's case and their current presentation, risk of harm to self or others is no longer perceived to be acute. Management of symptoms on an outpatient basis seems the most appropriate and least restrictive setting. Pt seems appropriate for discharge with recommendation for consistent follow-up with outpatient therapist. Pt verbalized understanding of discharge plan reviewed and is agreeable with plan to be discharged home today. Day of Discharge Assessment Patient's case was reviewed and discussed with nursing and social work. Staff report the patient has continued to demonstrate improvement in her condition as the weekend progressed, and is actually requested discharge home today. Pt is reportedly aware that attempts are still in progress to solidify an appointment for an outpatient therapist. It is reported she has continued to participate in group programming, and even completed a family meeting with her parents in [place] via phone. Pt was seen today to assess readiness for discharge. She reports that she has observed benefits of her hospitalization, feeling "this place does have its merit. It was nice to be in a place where you could hear multiple perspectives." Pt does indicate that she felt "respected" in this environment, feeling "I have worth despite my depression. I can still be valuable to people regardless of my illness." Pt states that she feels as though she has been given the ability to "start fresh at zero and rebuild" and feels "this is ok, I feel ok to do this." Pt denies SI at this time, stating "I think I have more patience, more kindness, and less violence toward myself." She states she has completed a safety plan and cooperates with conversation regarding how to best utilize her safety plan moving forward. She continues to decline initiation of an antidepressant medication at this time, but was reminded to coordinate with her therapist for consideration of medications in the future. Pt is requesting discharge home today after her therapy appointment has been scheduled. It was solidified later in the morning that patient has been scheduled with a therapist at [facility] on 07/10/2019. Pt is agreeable with attending this appointment, and is scheduled for an appointment with [facility] later that morning. ROS: Constitutional: denied Cardiovascular: denied Respiratory: denied Gastrointestinal: denied Neurological: denied Psychiatric: denies symptoms other than stated above Total of at least 10 systems reviewed, pertinent positives as above and in HPI. Transition of Care Transition Of Care Record: was reviewed with the patient Advance Directives Advance Directives Information Provided: Yes Advance Directives: No Mental Health Advance Directive: No Advance Directives on File: No Living Will: No Power of Youth Specialist: No Advance Directives Reason:: Declines as Mental Health Visit. Risk Factors Assessment Presenting risk factors reviewed on discharge. Precipitating stressors mitigated by: admission for inpatient psychiatric observation and treatment, attendance of therapeutic treatment groups, development of healthy and effective coping strategies, involvement of outpatient supports, completion of a safety plan, and education on diagnoses. Pt has demonstrated improvement in condition with regard to improvement in mood, resolution of acute SI, and establishment of an outpatient therapist. At this time, patient is requesting discharge and is no longer considered to be at acute risk of harm to herself. Pt will be discharged with recommendation for ongoing outpatient psychiatric treatment. Male: No : No Do You Have Access To A Gun?: No Health Problems: No Mental Health Diagnoses: Yes Substance Use Disorders: No Previous Attempt: Yes Family History of Suicide: No Previous Psychiatric Hospitalization: No Hopelessness: Yes Smoker: No Protective Factors Assessment : No Responsible for Young Children: No Employed: No Stable Relationships: No Supportive Family: Yes (Although conflicted relationship) Good Rapport with Provider: No Tobacco Cessation at Discharge Tobacco Cessation Medication Prescribed at Discharge: Not Applicable/Non-Smoker Total Time Total Time Spent: Greater Than 30 Minutes Total Time Includes: Examination of the patient, Discharge Planning, Medication Reconciliation and Communication with other providers Discharge Data Lab Results 07/02/19 07/02/19 07/02/19 16:04 16:04 16:08 WBC 5.96 RBC 4.28 Hgb 13.5 Hct 40.0 MCV 93.5 MCH 31.5 MCHC 33.8 RDW Std Deviation 45.3 RDW Coeff of Rob 13.3 Plt Count 257 MPV 9.1 Immature Gran % (Auto) 0.2 Neut % (Auto) 63.5 Lymph % (Auto) 29.0 [place] % (Auto) 6.4 Eos % (Auto) 0.7 Baso % (Auto) 0.2 Immature Gran # (Auto) 0.01 Neut # (Auto) 3.79 Lymph # (Auto) 1.73 [place] # (Auto) 0.38 Eos # (Auto) 0.04 Baso # (Auto) 0.01 Sodium Potassium Chloride Carbon Dioxide Anion Gap BUN Creatinine Est Cr Clr Drug Dosing Est GFR ( Amer) Est GFR (Non-Af Amer) BUN/Creatinine Ratio Glucose Calcium Total Bilirubin AST ALT Alkaline Phosphatase Total Protein Albumin Globulin Albumin/Globulin Ratio TSH HCG, Qual Urine Color Yellow Urine Appearance Clear Urine pH 6.0 Ur Specific [place] 1.011 Urine Protein Negative Urine Glucose (UA) Negative Urine Ketones 1+ H Urine Blood 1+ H Urine Nitrite Negative Urine Bilirubin Negative Urine Urobilinogen Negative Ur Leukocyte Esterase Negative Urine WBC (Auto) 1-5 Urine RBC (Auto) 0-4 U Hyaline Cast (Auto) 1-5 U Epithel Cells (Auto) >30 H Urine Bacteria (Auto) Negative Salicylates Urine Opiates Screen Neg Ur Methadone, Qual Neg Acetaminophen Urine Barbiturates Neg Ur Phencyclidine (PCP) Neg U Amphetamin/Meth Scrn Neg MDMA (Ecstasy) Screen Neg U Benzodiazepines Scrn Neg Ur Cocaine Metabolite Neg U Marijuana (THC) Screen Neg Ethyl Alcohol mg/dL 07/02/19 07/02/19 07/02/19 16:08 16:08 16:08 WBC RBC Hgb Hct MCV MCH MCHC RDW Std Deviation RDW Coeff of Rob Plt Count MPV Immature Gran % (Auto) Neut % (Auto) Lymph % (Auto) [place] % (Auto) Eos % (Auto) Baso % (Auto) Immature Gran # (Auto) Neut # (Auto) Lymph # (Auto) [place] # (Auto) Eos # (Auto) Baso # (Auto) Sodium 138 Potassium 3.3 L Chloride 104 Carbon Dioxide 29 Anion Gap 5.0 BUN 11 Creatinine 0.73 Est Cr Clr Drug Dosing 83.9 Est GFR ( Amer) 131.7 Est GFR (Non-Af Amer) 113.7 BUN/Creatinine Ratio 14.4 Glucose 90 Calcium 9.1 Total Bilirubin 0.9 AST 16 ALT 18 Alkaline Phosphatase 33 L Total Protein 7.9 Albumin 4.3 Globulin 3.6 Albumin/Globulin Ratio 1.2 TSH 2.490 HCG, Qual Urine Color Urine Appearance Urine pH Ur Specific [place] Urine Protein Urine Glucose (UA) Urine Ketones Urine Blood Urine Nitrite Urine Bilirubin Urine Urobilinogen Ur Leukocyte Esterase Urine WBC (Auto) Urine RBC (Auto) U Hyaline Cast (Auto) U Epithel Cells (Auto) Urine Bacteria (Auto) Salicylates < 1.7 L Urine Opiates Screen Ur Methadone, Qual Acetaminophen < 2 L Urine Barbiturates Ur Phencyclidine (PCP) U Amphetamin/Meth Scrn MDMA (Ecstasy) Screen U Benzodiazepines Scrn Ur Cocaine Metabolite U Marijuana (THC) Screen Ethyl Alcohol mg/dL < 3.0 07/02/19 16:08 WBC RBC Hgb Hct MCV MCH MCHC RDW Std Deviation RDW Coeff of Rob Plt Count MPV Immature Gran % (Auto) Neut % (Auto) Lymph % (Auto) [place] % (Auto) Eos % (Auto) Baso % (Auto) Immature Gran # (Auto) Neut # (Auto) Lymph # (Auto) [place] # (Auto) Eos # (Auto) Baso # (Auto) Sodium Potassium Chloride Carbon Dioxide Anion Gap BUN Creatinine Est Cr Clr Drug Dosing Est GFR ( Amer) Est GFR (Non-Af Amer) BUN/Creatinine Ratio Glucose Calcium Total Bilirubin AST ALT Alkaline Phosphatase Total Protein Albumin Globulin Albumin/Globulin Ratio TSH HCG, Qual Negative Urine Color Urine Appearance Urine pH Ur Specific [place] Urine Protein Urine Glucose (UA) Urine Ketones Urine Blood Urine Nitrite Urine Bilirubin Urine Urobilinogen Ur Leukocyte Esterase Urine WBC (Auto) Urine RBC (Auto) U Hyaline Cast (Auto) U Epithel Cells (Auto) Urine Bacteria (Auto) Salicylates Urine Opiates Screen Ur Methadone, Qual Acetaminophen Urine Barbiturates Ur Phencyclidine (PCP) U Amphetamin/Meth Scrn MDMA (Ecstasy) Screen U Benzodiazepines Scrn Ur Cocaine Metabolite U Marijuana (THC) Screen Ethyl Alcohol mg/dL Hospital Course (1) Depression: 07/03 -education provided regarding her diagnosis, the treatment options, including medications, therapy, lifestyle and behavioral interventions, as well as the psychological and spiritual aspects of mood disorders. She is interested in different approaches, having recently tried a drastic dietary change to impact mood, and has also benefited from therapy in the past. She was unwilling for medication today, but discussed the goal of using an antidepressant, specifically discussed SSRIs (escitalopram), including review of risks, benefits, and side effects, and the black box warning for increased suicidality for young adults. She was provided with an up-to-date patient handout on the medication. -Continue inpatient treatment. Encourage group attendance and participation. Work on healthy coping skills and discharge safety plan. -Recommend outpatient treatment with psychiatrist and therapist. -Recommend family meeting, either with parents in [place] or friends locally, which she is declining. -Coordinate with the University. 07/04 - Continue to provide education on diagnoses and aftercare recommendations - pt only willing for therapy at this time - Pt requesting discharge, feeling her stay has not been helpful and that hospitalization has made her suicidality worse - she was reminded of her right to sign a 72-hour notice and additional education was provided on this. She declined at this time, but continues to state she will not stay in the hospital past "three days, total" - Reports suicidality is worse today than on the day she experimented with hanging - Pt was encouraged to openly discuss her chronic suicidality with her outpatient therapist, and work toward safety planning steps early as a way to build rapport and trust. Pt admits she feels as though she cannot be truthful about her suicidality in the future after being referred to the hospital when she had been honest. She was encouraged to share this frustration with her outpatient therapist, to ensure she could be honest in their sessions, but come to an understanding of when crisis services would be recommended - Continue to encourage a family meeting, safety plan completion, and solidified outpatient supports as part of discharge planning - she remains resistant to these --encouraged family meeting and clear decision about staying at [facility] with support of SW and likely advisor after weekend. 07/05--SI persists but expression is uniquely cultural, no obvious borderline pathology in unit interactions, staff to involve more local friend in safety planning, more future focussed today, still denies vegetative symptoms of depression and declines med trial. Mental Health & Subst Abuse Tx Therapist Name of Therapist: VidSys-Bhavesh Larsen Therapist's Date of Therapist Appointment: 07/10/19 Time of Therapist Appointment: 9:00am Therapy Appointment Comment: [address], [address], [place] [address] Wood Polisher Name of Wood Polisher: Student [facility] - [facility] Phone Number for Wood Polisher: [phone] Date of Appointment with Wood Polisher: 07/10/19 Time of Appointment with Wood Polisher: 11:00 a.m. Case Management Appointment Comment: [address] [facility] Post Discharge Appointments Primary Care Physician Name Of Family Doctor: [facility] Primary Care Provider Appointment Comment: [facility] [place] [place] [address] Smoking Cessation Counseling Tobacco Cessation Medication Prescribed at Discharge: Not Applicable/Non-Smoker Contact Information Discharge Discharge Address: [address], [facility] [address], [place], [place] Discharge Plan Discharge Items Patient Disposition: Home - Self-Care Reason For Visit: DEPRESSION NOS Discharge Diagnosis: - Depression Activity: Resume your previous activity Non-emergency contact: Primary Care Provider and Therapist Call non-emergency contact if: you have any medication questions and your symptoms worsen Follow-up/Referrals: PCP,NO [Primary Care Provider] - Diet: Regular Addtl Attending Provider Instructions: SPECIAL CARE INSTRUCTIONS: 1. Follow through with your scheduled aftercare appointments. If unable to keep an appointment, please call to reschedule. 2. Take your medication only as prescribed. Medication should not be changed or stopped without the approval of your doctor. In the event of worsening symptoms or concerns about side effects, contact your doctor immediately. 3. Utilize new healthy coping skills, anger management skills, and stress management skills learned during your hospitalization. Journal feelings and process them with a support person. Identify stressors or situations that may result in relapse, deterioration or inappropriate behaviors and develop a plan to deal with those issues. 4. If your coping skills are ineffective and you are in crisis, contact your outpatient providers for direction. If unable to reach your providers, please call the CAN HELP LINE AT or go to the closest Emergency Room. 5. Avoid alcohol and un-prescribed drugs. 6. You have been provided with the Mental Health Advance Directives Pamphlet for your review. AFTERCARE APPOINTMENTS: * Please call your insurance company prior to your scheduled appointment to confirm your aftercare providers are covered. Take your insurance information to your appointments. WHO TO CALL AND WHEN: Medical Emergencies: For questions or emergencies related to your hospital stay, please contact the Inpatient Behavioral Health Unit at [phone]. A jordan man is on-call 27/11 for the Behavioral Health Unit for emergencies At any time you feel your situation is an emergency, you may also call 911 immediately. Your Doctors Instructions noted above were prepared by provider Arielle Bone PA-C. Pending Studies at Discharge: No Stand-Alone Forms: My [employer], Smoking Cessation, Suicide Prevention Resources Medications and DC Order Prescriptions: Continued multivitamin Tablet 1 tab PO DAILY RF: 0 Discharge Orders: Discharge Order (Routine); Ordered 07/08/19 Ordered By: Arielle Bone Admission Data Admit Date/Time: 07/02/19 19:04 Attending Provider: Itzel Ramirez Admit Provider: Itzel Ramirez Primary Care Provider: PCP,NO Other Interventions: Discharge Summary Assessment (RN) Last Done: 07/08/19 11:48 PSY Interdisciplinary Discharge Planning Last Done: 07/08/19 11:48 DC Date/Time DO NOT enter until pt leaves facility: 07/08/19 12:59 Coding Level of Care Code 60995 D/C day mgmt > 30 min Diagnoses Depression F32.9
== END 2019-07-08 12:59 | disposition home or self-care (01) | DRG 881 ==
LOC: ED 15:33 → 3S 19:04